=== PATIENT | male | born 1990 | race Caucasian/White ===

== ENCOUNTER → 2016-10-26 | Outpatient (CLI) | payer OTHER ==
[~2016-10-26] MED LIST: NAPR1TAB9 PO
== END | disposition home or self-care (01) ==
LOC: C.LAB 08:34 → EDSTATUS 08:35 → C.LAB 08:37 → EDSTATUS 10:59
PROVIDERS: ATTEND Pediatrics
DX: Z00.5 Encounter for examination of potential donor of organ and tissue (principal)

== ENCOUNTER → 2017-01-11 | Outpatient (CLI) | payer OTHER ==
--- NOTE | 2017-01-11 15:10 | DIAGNOSTIC IMAGING REPORT ---
MRI OF THE CERVICAL SPINE WITHOUT IV CONTRAST CLINICAL HISTORY: Cervical radiculopathy. Left upper extremity weakness and numbness. COMPARISON STUDY: No priors. TECHNIQUE: MRI of the cervical spine is performed utilizing various T1 and T2-weighted sequences in the axial and sagittal planes. IV contrast was not administered for this examination. FINDINGS: Cervical spine: Vertebral body height and alignment are maintained throughout the cervical spine. Normal marrow signal intensity is preserved throughout the visualized bony structures. There is straightening of cervical lordosis with mild reversal centered at C5. The atlantodental articulation appears preserved. The spinous processes appear intact. Intervertebral discs: There is degenerative disc desiccation throughout the cervical spine. The disc heights appear maintained. Spinal cord: The cervical spinal cord is normal in morphology and signal intensity. C2-C3: Unremarkable. C3-C4: A posterior disc osteophyte complex minimally effaces the ventral subarachnoid space. Uncovertebral and facet arthropathy cause moderate bilateral neural foraminal stenosis. C4-C5: A posterior disc osteophyte complex eccentric to the right abuts the ventral cord. Uncovertebral and facet arthropathy cause severe right greater than left neural foraminal stenosis. C5-C6: A posterior disc osteophyte complex eccentric to the right effaces the ventral cord. Uncovertebral and facet arthropathy cause severe right and moderate left neural foraminal stenosis. C6-C7: A posterior disc osteophyte complex eccentric to the left effaces the ventral cord. Uncovertebral and facet arthropathy cause severe left and moderate right neural foraminal stenosis. C7-T1: Unremarkable. Soft tissues: The prevertebral and paraspinous soft tissues are within normal limits. Brain parenchyma: A large arachnoid cyst is identified at the skull base and causes mass effect on the posterior cerebellum. The cerebellar tonsils are located above the foramen magnum. IMPRESSION: 1. No acute bony abnormality is identified involving the cervical spine. 2. Cervical spondylosis as above, greatest from C4-C5 through C6-C7. 3. The cervical spinal cord is normal in morphology and signal intensity. 4. A large right arachnoid cyst is partially imaged in the posterior fossa. Dictated: 01/11/2017 2:45 PM Transcribed: 01/11/2017 3:09 PM Nikolas Electronically signed by: Damaso Moon M.D. 01/11/2017 3:10 PM Dictated Date/Time: 01/11/2017 2:45 PM
== END | disposition home or self-care (01) ==
LOC: C.MRIBC 13:19
PROVIDERS: ATTEND Orthopaedic Surgery Sports Medicine
DX: M54.12 Radiculopathy, cervical region (principal); M47.812 Spondylosis without myelopathy or radiculopathy, cervical region; G93.0 Cerebral cysts

== ENCOUNTER → 2018-02-01 | Outpatient (CLI) | payer OTHER ==
[~2018-02-01] MED LIST changes: +MELO7.5T5 PO; -NAPR1TAB9 PO
--- NOTE | 2018-02-01 11:27 | DIAGNOSTIC IMAGING REPORT ---
MRI OF THE CERVICAL SPINE WITHOUT IV CONTRAST CLINICAL HISTORY: Disc herniation. Cervicalgia with right upper extremity radiculopathy. COMPARISON STUDY: MRI of the cervical spine dated 01/11/2017. TECHNIQUE: MRI of the cervical spine is performed utilizing various T1 and T2-weighted sequences in the axial and sagittal planes. IV contrast was not administered for this examination. FINDINGS: Cervical spine: Vertebral body height and alignment are maintained throughout the cervical spine. Normal marrow signal intensity is preserved at the visualized bony structures. There is straightening of the cervical lordosis with mild reversal centered at C5-C6. The atlantodental articulation appears maintained. The spinous processes are intact. Intervertebral discs: Mild degenerative disc desiccation is noted. There is minimal loss of height at C5-C6 and C6-C7. Spinal cord: The cervical spinal cord is normal in morphology and signal intensity. C2-C3: Uncovertebral and facet arthropathy cause mild bilateral neural foraminal stenosis. The central canal is patent. C3-C4: Uncovertebral and facet arthropathy cause severe right and moderate to severe left neural foraminal stenosis. There is no significant acquired compromise of the central canal. C4-C5: A posterior disc osteophyte complex abuts the ventral cord. Uncovertebral and facet arthropathy cause severe bilateral neural foraminal stenosis. C5-C6: A posterior disc osteophyte complex eccentric to the right effaces the ventral cord. Uncovertebral and facet arthropathy cause severe right and moderate to severe left neural foraminal stenosis. C6-C7: A posterior disc osteophyte complex effaces the ventral cord. Uncovertebral and facet arthropathy cause severe left greater than right neural foraminal stenosis. C7-T1: Unremarkable. Soft tissues: The prevertebral and paraspinous soft tissues are within normal limits. Brain parenchyma: An arachnoid cyst is noted in the posterior fossa. Partially imaged brain parenchyma at the skull base is otherwise normal in appearance. IMPRESSION: 1. Multilevel cervical spondylosis as above, greatest from C4-C5 through C6-C7. There is multilevel acquired compromise of the central canal and this is similar in appearance to 01/11/2017 examination. 2. The cervical spinal cord is normal in morphology and signal intensity. 3. No destructive osseous process is identified. Dictated: 02/01/2018 10:52 AM Transcribed: 02/01/2018 11:27 AM Alexis Electronically signed by: Damaso oMon M.D. 02/01/2018 11:45 AM Dictated Date/Time: 02/01/2018 10:52 AM
== END | disposition home or self-care (01) ==
LOC: C.MRIBC 10:00
PROVIDERS: ATTEND Orthopaedic Surgery
DX: M47.812 Spondylosis without myelopathy or radiculopathy, cervical region (principal)